=== PATIENT | female | born 1970 | race Caucasian/White ===

== ENCOUNTER 2024-10-24 02:48 | Emergency (ER) | payer MEDICAID, OTHER ==
[~2024-10-24] VITALS: Ht 172.7 cm; Wt 60.4 kg
[2024-10-24] MEDS: ALBUTEROL SULF 2.5 MG/0.5ML(0.5%) NEB SOLN NEB ONE (03:43)
[2024-10-24] MEDS: IPRATROPIUM BROM 0.5 MG/2.5ML INH SOL NEB ONE (03:43)
[2024-10-24 03:49] LABS: Base Excess 0.2 mmol/L (-2.0-3.0)
[2024-10-24 03:50] LABS: Basophils # (auto) 0.1 10 ^3/uL (0-0.2); Basophils % (auto) 0.3 % (0.0-2.0); Eosinophils # (auto) 0 10 ^3/uL (0-0.8); Hematocrit 41.3 % (36.0-46.0); Hemoglobin 13.7 g/dL (12.2-16.2); Lymphocytes # (auto) 0.5 10 ^3/uL (0.4-5.4); Lymphocytes % (auto) 2.6 % (10.0-50.0); Mean Corpuscular Hemoglobin 28.7 pg (28.0-32.0); Mean Corpuscular Hgb Conc. 33.2 g/dL (32.0-36.0); Mean Corpuscular Volume 86.3 fL (80.0-100.0); Monocytes # (auto) 0.7 10 ^3/uL (0-1.3); Monocytes % (auto) 3.6 % (0.0-12.0); Neutrophils % (auto) 93.5 % (37.0-80.0); Platelet Count (auto) 251 10^3/uL (140-450); Red Blood Cells 4.78 10^6/uL (4.0-5.20); Red Cell Distribution Width 14.9 % (11.8-14.3); White Blood Cell 20.3 10^3/uL (4.4-10.8)
[2024-10-24 04:07] LABS: Chloride 103 mmol/L (98-107); Potassium 4.2 mmol/L (3.5-5.1)
[2024-10-24 04:08] LABS: Anion Gap 6 (5-15); Calcium 9.6 mg/dL (8.7-10.4); Carbon Dioxide 26 mmol/L (20-31)
[2024-10-24 04:13] LABS: BUN/Creatinine Ratio 16.9 (10.0-20.0); Blood Urea Nitrogen 11 mg/dL (9-23)
[2024-10-24] MEDS: ASPirin 81 mg TAB PO ONE (04:21)
[2024-10-24 04:37] LABS: Glucose 130 mg/dL (74-106); Sodium 135 mmol/L (136-145)
--- NOTE | 2024-10-24 04:45 | ED.PDOC ---
History of Present Illness HPI Comments 54 y/o F presents with spouse for c/o shortness of breath, chest pain, productive cough, fever, chills, nasal discharge, lightheadedness, weakness, dizziness, and weakness for 2x days, today. Patient is a poor historian and endorses on unprovoked onset of symptoms coinciding recent skin infection to both her nares that have been progressively worsening since. She comments on being on a Clindamycin and mupirocin medication regiment after, initially, being seen and evaluated for skin infection at her local urgent care facility to no relief or improvement. Patient comments on pain worsening with inspirations/expirations and, [place] inhaling "[place] dust" since moving here. She denies having any nausea, vomiting, urinary symptoms, hemoptysis, or other associated symptoms or modifiers at this time. Chief Complaint: Shortness of Breath Time Seen by MD: 02:50 Primary Care Provider: DR BENNETT Reviewed Notes: Nurses Notes, Medications, Allergies Information Source: Patient Mode of Arrival: Ambulatory Severity: Moderate Timing: Days Duration: Since onset Prehospital treatment: None Review of Systems: REVIEW OF SYSTEMS: Fever, chills, no fatigue HEENT: Nasal discharge, no sore throat, no earache, no congestion, no neck pain. Cardiac: Chest pain, lightheadedness, dizzy spells. No palpitations. Lungs: Shortness of breath, cough GI: No nausea, no vomiting, no diarrhea, no constipation, no abdominal pain : No dysuria, frequency, or urgency. No hematuria. Musculoskeletal: No joint pain , no joint swelling, no extremity edema. Skin: No rash, no itching. Neuro: Dizziness, weakness, No headache Vital Signs Vital Signs Date Time Temp Pulse Resp B/P (MAP) Pulse Ox O2 Delivery O2 Flow Rate FiO2 10/24/24 03:44 20 94 Nasal Cannula* 2 28 10/24/24 02:55 98.5 126 147/59 (88) Physical Exam General: Awake, alert and oriented. No acute distress. Skin: Skin in warm, dry and intact. Appropriate color for ethnicity. HEENT: Bilateral nares are inflamed, external nose is erythematous, eschar to right nostril. The head is normocephalic and atraumatic. Conjunctivae are clear without exudates or hemorrhage. Sclera is non-icteric. EOM are intact. No signs of nystagmus. Eyelids are normal in appearance without swelling or lesions. Oral mucosa is pink and moist Neck: The neck is supple with normal range of motion. No JVD. Cardiac: Heart rate tachycardic and rhythm are normal. No murmurs, gallops, or rubs are auscultated. Respiratory: Wheezing, bilaterally. No signs of respiratory distress. Lung sounds are clear in all lobes bilaterally without rales or rhonchi. Abdominal: Abdomen is soft, non-tender without distention. Bowel sounds are present and normoactive in all four quadrants. Extremities: Upper and lower extremities are atraumatic in appearance without deformity or edema. Neurological: The patient is awake, alert and oriented to person, place, and time with normal speech. Speech is clear. There is no facial asymmetry. Psychiatric: Appropriate mood and affect. Good judgement and insight. No visual or auditory hallucinations. 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 Was a procedure done?: No Differential Dx Considerations may include: URI, contact dermatitis, cellulitis, viral syndrome, musculoskeletal pain, NV, PE, PNA, bronchitis X-Ray, Labs, Meds, VS Vital Signs Date Time Temp Pulse Resp B/P (MAP) Pulse Ox O2 Delivery O2 Flow Rate FiO2 10/24/24 03:44 20 94 Nasal Cannula* 2 28 10/24/24 02:55 98.5 126 20 147/59 (88) 89 10/24/24 02:55 20 89 Room Air 0 Lab Test 10/24/24 03:39 Range/Units White Blood Count 20.3 H 4.4-10.8 10^3/uL Red Blood Count 4.78 4.0-5.20 10^6/uL Hemoglobin 13.7 12.2-16.2 g/dL Hematocrit 41.3 36.0-46.0 % Mean Corpuscular Volume 86.3 80.0-100.0 fL Mean Corpuscular Hemoglobin 28.7 28.0-32.0 pg Mean Corpuscular Hemoglobin Concent 33.2 32.0-36.0 g/dL Red Cell Distribution Width 14.9 H 11.8-14.3 % Platelet Count 251 140-450 10^3/uL Mean Platelet Volume 8.7 6.9-10.8 fL Neutrophils (%) (Auto) 93.5 H 37.0-80.0 % Lymphocytes (%) (Auto) 2.6 L 10.0-50.0 % Monocytes (%) (Auto) 3.6 0.0-12.0 % Eosinophils (%) (Auto) 0.0 0.0-7.0 % Basophils (%) (Auto) 0.3 0.0-2.0 % Neutrophils # (Auto) 19.0 H 1.6-8.6 10 ^3/uL Lymphocytes # (Auto) 0.5 0.4-5.4 10 ^3/uL Monocytes # (Auto) 0.7 0-1.3 10 ^3/uL Eosinophils # (Auto) 0 0-0.8 10 ^3/uL Basophils # (Auto) 0.1 0-0.2 10 ^3/uL Nucleated Red Blood Cells 0.0 % D-Dimer, Quantitative 1.18 H 0.0-0.49 mg/L FEU Blood Gas Specimen Type Arterial Blood Gas Sample Site Right radial Blood Gas Patient Temperature 37.0 Arterial Blood Date Drawn [id number] Arterial Blood pH 7.431 7.350-7.450 Arterial Blood Partial Pressure CO2 37.3 32.0-45.0 mmHg Arterial Blood Partial Pressure O2 68.8 L 83.0-108.0 mmHg Arterial Blood HCO3 24.3 21.0-28.0 mmol/L Arterial Blood Oxygen Saturation 93.9 L 94.0-98.0 % Arterial Blood Base Excess 0.2 -2.0-3.0 mmol/L Arterial Blood Oxyhemoglobin 92.0 L 94.0-98.0 % Arterial Blood Carboxyhemoglobin 1.8 H 0.5-1.5 % Arterial Blood Methemoglobin 0.2 0.0-1.5 % Harjit Test Modified Blood Gas Total Hemoglobin 13.50 12.0-16.0 g/dL Blood Gas Liter Flow 2.00 Blood Gas Modality Nasal cannula FiO2 % 28.0 Sodium Level 135 L 136-145 mmol/L Potassium Level 4.2 3.5-5.1 mmol/L Chloride Level 103 98-107 mmol/L Carbon Dioxide Level 26 20-31 mmol/L Anion Gap 6 5-15 Blood Urea Nitrogen 11 9-23 mg/dL Creatinine 0.65 0.550-1.02 mg/dL Glomerular Filtration Rate Calc 103 >90 mL/min BUN/Creatinine Ratio 16.9 10.0-20.0 Serum Glucose 130 H 74-106 mg/dL Calcium Level 9.6 8.7-10.4 mg/dL Current Medications Medications (Trade) Dose Ordered Sig/Lucille Route Start Time Stop Time Status Last Admin Albuterol (Ventolin Medneb) 2.5 mg ONCE ONCE NEB 10/24/24 03:30 10/24/24 03:31 DC 10/24/24 03:43 Ipratropium [place] (Atrovent Medneb) 0.5 mg ONCE ONCE NEB 10/24/24 03:30 10/24/24 03:31 DC 10/24/24 03:43 Aspirin 324 mg ONCE ONCE PO 10/24/24 03:30 10/24/24 03:31 DC 10/24/24 04:21 Dexamethasone Sodium Phosphate (Decadron Injection) 10 mg ONCE ONCE IV 10/24/24 05:15 10/24/24 05:16 10/24/24 05:09 Time of 1ST Reevaluation: 03:20 Reevaluation 1ST: Unchanged Patient Education/Counseling: Diagnosis, Treatment Family Education/Counseling: Diagnosis, Treatment Departure 1 Departure Time of Disposition: 05:13 Impression: Primary Impression: Hypoxia Additional Impressions: Asthma exacerbation Cellulitis of nose Disposition: ADMITTED INPATIENT Condition: Stable Comments 54-year-old female who presented to the emergency department with acute onset of chest pain and shortness of breath. She states the shortness of breath woke her from her sleep. She was found to be 88% on room air in triage. ABG shows PO2 63 on 2 L oxygen. Patient has a history of asthma with wheezing on exam. Steroid and DuoNeb was administered. D-dimer is positive. CT angiogram of the chest pending. Discussed with patient need for admission for further treatment especially in the light of hypoxia. She agrees to admission. Critical Care Note Critical Care Time?: No Stability Stability form required: No Heart Score Heart Score: Heart Score Response (Comments) Value History N/A 0 EKG N/A 0 Age N/A 0 Risk Factors N/A 0 Troponin N/A 0 Total 0 I personally scribed for MERI ANGELES MD ([email or web address]) on 10/24/24 at 04:45. Electronically submitted by Arnold Cortez ([email or web address]). MERI ANGELES MD Oct 24, 2024 04:45
[2024-10-24] MEDS: DexAMETHasone INJECTION 10 MG in D5W 5% 50 ML IV ONE (05:05)
[2024-10-24] MEDS: DexAMETHasone SOD PHOS 10MG/1ML VIAL INJ IV ONE (05:09)
[2024-10-24] MEDS: IOHEXOL 350 MG/ML 100ML IJ ONE (05:57)
[2024-10-24] MEDS: diphenhdrAMINE HCL 50 MG/1 ML VL IV ONE (06:08)
[2024-10-24] MEDS: methylPREDNISolone SOD SUCC 125 MG/2 ML VL IV ONE (06:08)
[2024-10-24] MEDS: AZITHROMYCIN 500MG/ 250ML 250 ML IV ONE (06:45)
[2024-10-24 07:30] VITALS: BP 92/58; PULSE 118; RESP 18; TEMP 98; O2SAT 94
[2024-10-24 07:35] LABS: COVID19 ANTIGEN SOFIA FIA NEGATIVE (NEGATIVE)
[2024-10-24 07:36] LABS: Rapid Influenza A Negative (Negative); Rapid Influenza B Negative (Negative)
[2024-10-24 07:46] LABS: Urine Bacteria FEW /hpf (None Seen); Urine Blood TRACE /uL (Negative); Urine Clarity Clear (Clear); Urine Protein, UAD Negative (Negative); Urine Specific Gravity 1.002 (1.001-1.035); Urine Squamous Epithelial Cell FEW /hpf (<5); Urine Urobilinogen Normal (Negative); Urine WBC 1 /HPF (0-5); Urine pH 5.5 (5.0-9.0)
[2024-10-24 07:51] LABS: Urine Color Light-Yellow (Yellow)
[2024-10-24 08:00] LABS: Cannabinoid Screen, Urine Pos (NEGATIVE); Opiate Scree,Urine Neg (NEGATIVE)
[2024-10-24 08:05] LABS: Amphetamine Screen, Urine Pos (NEGATIVE); Barbiturate Scree,Urine Neg (NEGATIVE); Benzodiazephine Screen, Urine Neg (NEGATIVE); Cocaine Screen, Urine Neg (NEGATIVE); Phencyclidine Screen, Urine Neg (NEGATIVE)
--- NOTE | 2024-10-24 10:04 | DVH ---
CHEST RADIOGRAPH Indication: CP Technique: Single frontal view of the chest was obtained Comparison: None FINDINGS: Lines and Tubes: None Lungs: Bilateral interstitial opacities. There is a focal nodular opacity in the right upper lung zone measuring 1.2 cm. Pleura: No effusion. No pneumothorax. Cardiomediastinal contours: Unremarkable Bones: No acute osseous abnormality. IMPRESSION: 1. Pulmonary venous congestion. Possible 1.2 cm nodule in the right upper lung zone. Noncontrast chest CT is suggested further evaluation. [place] DANIELS
== END 2024-10-24 07:34 | disposition left against medical advice (07) ==
LOC: ER 02:48
DX: J45.901 Unspecified asthma with (acute) exacerbation (principal); R09.02 Hypoxemia; J34.0 Abscess, furuncle and carbuncle of nose; R53.1 Weakness; R42 Dizziness and giddiness; R50.9 Fever, unspecified; R05.9 Cough, unspecified; Z20.822 Contact with and (suspected) exposure to COVID-19
CPT/HCPCS: 36415; 36600; 71045; 80048; 80307; 81001; 82805; 84484; 85025; 85379; 87426; 87804; 94640; 96365; 96375; 99284; J0456; J1100; J1200; J2919; J7060; Q9967

== ENCOUNTER 2024-10-25 06:48 | Inpatient (IN) | payer MEDICAID, OTHER ==
[~2024-10-25] VITALS: Ht 175.3 cm; Wt 90.7 kg
[2024-10-25] VITALS (45 sets, daily range): BP systolic 52–165; BP diastolic 11–97; PULSE 106–207; RESP 16–38; TEMP 97.5–101.5; O2SAT 43–100
--- NOTE | 2024-10-25 06:56 | ED.PDOC ---
SOB-HPI HPI Comments 57 year old female ASHUTOSH presents to the ED with chief complaint of SOB. EMS reports patient has been experiencing SOB with associated wheezing for the past 3 days, worsening over time. EMS relays patient was seen in a hospital recently with sinus infection, but did not receive a prescription. EMS states patient was provided CPAP with DuoNeb treatment and saw immediate improvement in spO2 and breathing. Patient noted to have history of COPD and CHF. Patient denies any chest pain, dizziness, headache, cough, congestion, fever, chills or N/V. 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: Denies all MOLECULAR TECHNOLOGIST Hx Family History Family History: Reviewed,noncontributory to illness Social History Smoker: Non-Smoker Alcohol: Denies ETOH Use Drugs: Denies Drug Use Lives In: Home Constitutional: denies: chills, diaphoresis, fatigue, fever, malaise, sweats, weakness, others EENTM: denies: blurred vision, double vision, ear bleeding, ear discharge, ear drainage, ear pain, ear ringing, eye pain, eye redness, hearing loss, mouth pain, mouth swelling, nasal discharge, nose bleeding, nose congestion, nose pain, photophobia, tearing, throat pain, throat swelling, voice changes, others Respiratory: reports: shortness of breath, wheezing; denies: cough, hemoptysis, orthopnea, SOB at rest, SOB with excertion, stridor, others Cardiovascular: denies: chest pain, dizzy spells, diaphoresis, Dyspnea on exertion, edema, irregular heart beat, left arm pain, lightheadedness, palpitations, PND, syncope, others Gastrointestinal: denies: abdomen distended, abdominal pain, blood streaked bowels, constipated, diarrhea, dysphagia, difficulty swallowing, hematemesis, melena, nausea, poor appetite, poor fluid intake, rectal bleeding, rectal pain, vomiting, others Genitourinary: denies: abnormal vagina bleeding, burning, dyspareunia, dysuria, flank pain, frequency, hematuria, incontinence, pain, , vagina discharge, urgency, others Neurological: denies: dizziness, fainting, headache, left sided numbness, left sided weakness, numbness, paresthesia, pre-existing deficit, right sided numbness, right sided weakness, seizure, speech problems, tingling, tremors, weakness, others Musculoskeletal: denies: back pain, gout, joint pain, joint swelling, muscle pain, muscle stiffness, neck pain, others Integumetry: denies: bruises, change in color, change in hair/nails, dryness, laceration, lesions, lumps, rash, wounds, others Allergic/Immunocompromised: denies: Difficulty Healing, Frequent Infections, Hives, Itching, others Hematologic/Lymphatic: denies: anemia, blood clots, easy bleeding, easy bruising, swollen glands, others Endocrine: denies: excessive hunger, excessive sweating, excessive thirst, excessive urination, flushing, intolerance to cold, intolerance to heat, une xplained weight gain, unexplained weight loss, others Psychiatric: denies: anxiety, bipolar disorder, depression, hopeless, panic disorder, schizophrenia, sleepless, suicidal, others All Other Systems: Reviewed and Negative Physical Exam General Appearance: No Apparent Distress, Normal HEENT: Normal ENT Inspection, PERRL/EOMI Neck: Full Range of Motion, Non-Tender, Normal, Normal Inspection Respiratory: Chest Non-Tender, Lungs Clear, No Accessory Muscle Use, Other (Tachypneic, Course breath sounds bilaterally, expiratory wheezing) Cardiovascular: No Edema, No JVD, No Murmur, No Gallop, Normal Peripheral Pulses, Tachycardia Breast Exam: Deferred Gastrointestinal: No Organomegaly, Non Tender, No Pulsatile Mass, Normal Bowel Sounds, Soft Genitalia: Deferred Pelvic: Deferred Rectal: Deferred Extremities: No calf tenderness, Normal capillary refill, Normal inspection, Normal range of motion, Non-tender, No pedal edema Musculoskeletal : Apperance: Normal Neurologic: Alert, bakery chef II-XII nml as Tested, No Motor Deficits, Normal Affect, Normal Mood, No Sensory Deficits Cerebellar Function: Normal Reflexes: Normal Skin: Dry, Normal Color, Warm Lymphatic: No Adenopathy Was a procedure done? 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 Indication: Hypotension, CVP monitoring, Volume resuscitation, Suspected infection Room prepared for procedure: Yes Windows Application Packager performed hand hygien: Yes Maximal sterile barrier precau: Mask/Eye shield, Sterile gown, Cap, Sterlie gloves, Large sterlie drape Skin Preparation: Chlorhexidine gluconate Skin preparation completely dr: Yes Insertion site: Right, Femoral Central line catheter type: [id number] dialysis Number of lumens: 3 Post Assessment: Chest X-Ray Informed consent obtained: Yes Risks/benefits/alt described: Yes Intubation Indication: Respiratory Insufficiency, Airway Protection Prep: Preoxygenation Pretreated with: Sedation Medicated with: Other (100mg of Rocuronium, 20mg of Etomidate) Intubation Approach: Orotracheal Intubation size: cm (8) Informed consent obtained: Yes Risks/benefits/alt described: Yes Differential Dx Differential Diagnosis: CHF, COPD, Hyponatremia, Pneumonia, Respiratory Distress, URI X-Ray, Labs, Meds, VS Vital Signs Date Time Temp Pulse Resp B/P (MAP) Pulse Ox O2 Delivery O2 Flow Rate FiO2 10/25/24 09:04 109/67 10/25/24 09:04 109/67 10/25/24 08:58 109/67 10/25/24 08:40 159 45 109/67 (81) 95 10/25/24 08:23 148 16 107/74 (85) 98 50 10/25/24 08:00 143 10/25/24 07:03 145 166/113 Facial BiPAP Mask 100 10/25/24 06:53 97.9 110 22 165/90 (115) 96 Lab Test 10/25/24 08:15 10/25/24 08:02 10/25/24 07:00 Range/Units Troponin I High Sensitivity Pending 3 L </=34 ng/L Blood Gas Specimen Type Arterial Blood Gas Sample Site Right brachial Blood Gas Patient Temperature 37.0 Arterial Blood Date Drawn [id number] Arterial Blood pH 7.275 L 7.350-7.450 Arterial Blood Partial Pressure CO2 43.2 32.0-45.0 mmHg Arterial Blood Partial Pressure O2 361.9 *H 83.0-108.0 mmHg Arterial Blood HCO3 19.6 L 21.0-28.0 mmol/L Arterial Blood Oxygen Saturation 99.7 H 94.0-98.0 % Arterial Blood Base Excess -7.0 L -2.0-3.0 mmol/L Arterial Blood Oxyhemoglobin 97.7 94.0-98.0 % Arterial Blood Carboxyhemoglobin 1.6 H 0.5-1.5 % Arterial Blood Methemoglobin 0.4 0.0-1.5 % Harjit Test N/a Blood Gas Total Hemoglobin 14.40 12.0-16.0 g/dL Blood Gas Set Respiration Rate 12.0 Blood Gas Modality Mask - bipap Blood Gas Spontaneous Rate 33 FiO2 % 100.0 Blood Gas Spontaneous Tidal Volume 789 Blood Gas EPAP 5 Blood Gas IPAP 12 Blood Gas Comments I-time 0.9 sec. Blood Gas Critical Value Read Back Yes Blood Gas Notified Whom Blood Gas Notified Time [id number] Blood Gas Notified By Barbara montoya rt White Blood Count 3.6 L 4.4-10.8 10^3/uL Red Blood Count 5.27 H 4.0-5.20 10^6/uL Hemoglobin 14.9 12.2-16.2 g/dL Hematocrit 45.9 36.0-46.0 % Mean Corpuscular Volume 87.0 80.0-100.0 fL Mean Corpuscular Hemoglobin 28.2 28.0-32.0 pg Mean Corpuscular Hemoglobin Concent 32.4 32.0-36.0 g/dL Red Cell Distribution Width 15.0 H 11.8-14.3 % Platelet Count 264 140-450 10^3/uL Mean Platelet Volume 9.6 6.9-10.8 fL Neutrophils (%) (Auto) 37.0-80.0 % Lymphocytes (%) (Auto) 10.0-50.0 % Monocytes (%) (Auto) 0.0-12.0 % Basophils (%) (Auto) 0.0-2.0 % Neutrophils # (Auto) 1.6-8.6 10 ^3/uL Lymphocytes # (Auto) 0.4-5.4 10 ^3/uL Monocytes # (Auto) 0-1.3 10 ^3/uL Differential Total Cells Counted Pending Neutrophils % (Manual) Pending Band Neutrophils % (Manual) Pending Lymphocytes % (Manual) Pending Monocytes % (Manual) Pending Eosinophils % (Manual) Pending Basophils % (Manual) Pending Metamyelocytes % (manual) Pending Myelocytes % (Manual) Pending Promyelocytes % (Manual) Pending Blast Cells % (Manual) Pending Reactive Lymphocytes Pending Platelet Estimate Pending Sodium Level 137 136-145 mmol/L Potassium Level 3.4 L 3.5-5.1 mmol/L Chloride Level 102 98-107 mmol/L Carbon Dioxide Level 23 20-31 mmol/L Anion Gap 12 5-15 Blood Urea Nitrogen 19 9-23 mg/dL Creatinine 1.06 H 0.550-1.02 mg/dL Glomerular Filtration Rate Calc 61 >90 mL/min BUN/Creatinine Ratio 17.9 10.0-20.0 Serum Glucose 129 H 74-106 mg/dL Calcium Level 10.1 8.7-10.4 mg/dL B-Type Natriuretic Peptide 47.71 0-100 pg/mL Current Medications Medications (Trade) Dose Ordered Sig/Lucille Route Start Time Stop Time Status Last Admin Albuterol (Ventolin Medneb) 5 mg ONCE ONCE NEB 10/25/24 07:00 10/25/24 07:01 DC 10/25/24 07:20 Ipratropium [place] (Atrovent Medneb) 0.5 mg ONCE ONCE NEB 10/25/24 07:00 10/25/24 07:01 DC 10/25/24 07:20 Methylprednisolone Sodium Succinate (Solu Medrol) 62.5 mg ONCE ONCE IV 10/25/24 07:00 10/25/24 07:01 DC 10/25/24 07:24 Azithromycin 250 ml @ 125 mls/hr ONCE ONCE IV 10/25/24 07:00 10/25/24 08:59 DC 10/25/24 07:24 Ketamine HCl (Ketalar) 50 mg ONCE ONCE IV 10/25/24 07:00 10/25/24 07:01 DC 10/25/24 07:24 Midazolam HCl 50 ml @ 1 mls/hr Q24H IV 10/25/24 09:00 10/25/24 09:04 Fentanyl Citrate 250 ml @ 2.5 mls/hr Q24H IV 10/25/24 09:00 10/25/24 09:04 Rocuronium [place] 100 mg ONCE ONCE IV 10/25/24 08:20 10/25/24 08:55 DC 10/25/24 08:58 Etomidate 40 mg ONCE ONCE IV 10/25/24 08:20 10/25/24 08:55 DC 10/25/24 08:58 Sodium Chloride 1,000 ml @ 1,000 mls/hr Q1H ONCE IV 10/25/24 09:00 10/25/24 09:59 10/25/24 08:59 Time of 1ST Reevaluation: 07:51 Reevaluation 1ST: Unchanged Patient Education/Counseling: Diagnosis, Treatment Family Education/Counseling: No Family Present Additional Information I reviewed the following notes from patient's past medical encounters: The following tests were ordered, and results were reviewed by me: I reviewed and agreed with the following test results read by other providers: Additional Information was gathered from interviewing the following independent historians: I discussed treatment and results with medical personnel and: Departure 1 Departure Time of Disposition: 09:28 (Patient presents in septic shock secondary to multifocal pneumonia. We will empirically cover patient with fluids and antibiotics. Patient was emergently intubated and central line placed for respiratory failure. We will admit patient to ICU) Impression: Primary Impression: Acute respiratory failure Qualified Codes: J96.01 - Acute respiratory failure with hypoxia Additional Impressions: Sepsis Qualified Codes: A41.9 - Sepsis, unspecified organism; R65.21 - Severe sepsis with septic shock; J96.01 - Acute respiratory failure with hypoxia Multifocal pneumonia Disposition: ADMITTED INPATIENT Admit to: ICU Condition: Critical Critical Care Note Critical Care Time?: Yes Critical care comment: Acute respiratory failure Authorized and Performed by: Devi Gibbs MD Total critical care time: Approximately 49 minutes Due to a high probability of clinically significant, life threatening deterioration, the patient required my highest level of preparedness to intervene emergently and I personally spent this critical care time directly and personally managing the patient. This critical care time included obtaining a history; examining the patient; pulse oximetry; ordering and review of studies; arranging urgent treatment with development of a management plan; evaluation of patient's response to treatment; frequent reassessment; and, discussions with other providers. This critical care time was performed to assess and manage the high probability of imminent, life-threatening deterioration that could result in multi-organ failure. It was exclusive of separately billable procedures and treating other patients and teaching time. Please see my other sections and the rest of the note for further information on patient assessment and treatment. Stability Stability form required: No Heart Score Heart Score: Heart Score Response (Comments) Value History N/A 0 EKG N/A 0 Age N/A 0 Risk Factors N/A 0 Troponin N/A 0 Total 0 I personally scribed for DEVI GIBBS MD ([email or web address]) on 10/25/24 at 06:56. Electronically submitted by Keanu May ([email or web address]). I personally scribed for DEVI GIBBS MD ([email or web address]) on 10/25/24 at 08:29. Electronically submitted by Keanu May ([email or web address]). I personally scribed for DEVI GIBBS MD ([email or web address]) on 10/25/24 at 08:45. Electronically submitted by Keanu May ([email or web address]). DEVI GIBBS MD Oct 25, 2024 06:56
[2024-10-25] MEDS: IPRATROPIUM BROM 0.5 MG/2.5ML INH SOL NEB ONE (07:20)
[2024-10-25] MEDS: ALBUTEROL SULF 2.5 MG/0.5ML(0.5%) NEB SOLN NEB ONE (07:20)
[2024-10-25] MEDS: KETAMINE 50mg/ML 10ml Vial (500mg/10ml) IV ONE (07:24)
[2024-10-25] MEDS: methylPREDNISolone SOD SUCC 125 MG/2 ML VL IV ONE (07:24)
[2024-10-25] MEDS: AZITHROMYCIN 500MG/ 250ML 250 ML IV ONE (07:24)
--- NOTE | 2024-10-25 07:29 | DVH ---
CHEST RADIOGRAPH Indication: SOB Technique: Single frontal view of the chest was obtained Comparison: None FINDINGS: Lines and Tubes: None Lungs: Bilateral consolidations noted. Pleura: No effusion. No pneumothorax. Cardiomediastinal contours: Unremarkable Bones: No acute osseous abnormality. IMPRESSION: 1. Bilateral consolidations which may reflect pneumonia.
[2024-10-25 07:36] LABS: Chloride 102 mmol/L (98-107); Sodium 137 mmol/L (136-145)
[2024-10-25 07:37] LABS: Anion Gap 12 (5-15); Calcium 10.1 mg/dL (8.7-10.4); Carbon Dioxide 23 mmol/L (20-31)
[2024-10-25 07:42] LABS: BUN/Creatinine Ratio 17.9 (10.0-20.0); Blood Urea Nitrogen 19 mg/dL (9-23)
[2024-10-25 07:46] LABS: Glucose 129 mg/dL (74-106); Potassium 3.4 mmol/L (3.5-5.1)
[2024-10-25 07:49] LABS: Hematocrit 45.9 % (36.0-46.0); Hemoglobin 14.9 g/dL (12.2-16.2); Mean Corpuscular Hemoglobin 28.2 pg (28.0-32.0); Mean Corpuscular Hgb Conc. 32.4 g/dL (32.0-36.0); Platelet Count (auto) 264 10^3/uL (140-450); Red Blood Cells 5.27 10^6/uL (4.0-5.20); White Blood Cell 3.6 10^3/uL (4.4-10.8)
[2024-10-25 07:52] LABS: Basophils % (manual) 0 (0.0-2.0); Blast Cells 0; Eosinophils % (manual) 0 (0-7); Metamyelocytes % 0; Myelocytes % 0; Promyelocytes % 0; Reactive Lymphocytes 0
[2024-10-25] MEDS: MIDAZOLAM DRIP 50 mg/50mL 50 ML IV ONE (08:17)
[2024-10-25] MEDS: ETOMIDATE (2MG/ML) 20ML VIAL IV ONE ×2 (08:17→08:58)
[2024-10-25] MEDS: ROCURONIUM 10MG/ML 10ML VIAL IV ONE ×2 (08:17→08:58)
[2024-10-25] MEDS: SODIUM CHLORIDE 0.9% 1,000 ML IV ONE ×3 (08:59→12:58)
[2024-10-25] MEDS: MIDAZOLAM DRIP 50 mg/50mL 50 ML IV SCH (09:04)
[2024-10-25] MEDS: fentaNYL Drip 2500mCg/250mlNS 250 ML IV SCH (09:04)
--- NOTE | 2024-10-25 09:22 | DVH ---
CHEST RADIOGRAPH Indication: ETT / NG TUBE PLACEMENT CONFIRMATION Technique: Single frontal view of the chest was obtained Comparison: None FINDINGS: Lines and Tubes: Endotracheal tube 6 cm from the nasogastric overlying region stomach Lungs: Multifocal airspace opacities Pleura: No effusion. No pneumothorax. Cardiomediastinal contours: Unremarkable Bones: No acute osseous abnormality. IMPRESSION: Multifocal airspace opacities Lines and tubes as above.
[2024-10-25] MEDS ORDERED: VANCOMYCIN 1GM/250ML KIT 200 ML IV ONE (09:30)
[2024-10-25 09:33] LABS: Band Neutrophils % (manual) 10; Lymphocytes % (manual) 25 (10.0-50.0); Monocytes % (manual) 3 (0-12)
[2024-10-25 09:34] LABS: Platelet Estimate Adequate
[2024-10-25 09:54] LABS: Base Excess -11.5 mmol/L (-2.0-3.0)
[2024-10-25] MEDS ORDERED: DOCUSATE SOD 100 MG CAP PO PRN (10:00)
[2024-10-25] MEDS ORDERED: MORPHINE SULFATE INJ 2 MG/ml SYRG IV PRN (10:00)
[2024-10-25] MEDS ORDERED: ONDANSETRON HCL 4 MG/2 ML VIAL IV PRN (10:00)
[2024-10-25] MEDS ORDERED: NITROGLYCERIN 0.4 MG SL TAB SL PRN (10:00)
[2024-10-25] MEDS ORDERED: VANCOMYCIN PER PHARMACY 0 MG IV SCH ×2 (10:00→11:45)
[2024-10-25 10:05] LABS: Urine Bacteria FEW /hpf (None Seen); Urine Blood 1+ /uL (Negative); Urine Clarity Turbid (Clear); Urine Color Yellow (Yellow); Urine Hyaline Cast MOD /lpf (0 - 2); Urine Mucus FEW (None Seen); Urine Protein, UAD 1+ (Negative); Urine Specific Gravity 1.027 (1.001-1.035); Urine Squamous Epithelial Cell FEW /hpf (<5); Urine Urobilinogen Normal (Negative); Urine WBC 9 /HPF (0-5); Urine pH 5.5 (5.0-9.0)
--- NOTE | 2024-10-25 10:13 | DVHHP2 ---
History of Present Illness Reason for Visit: Shortness of breath History of Present Illness Susan Reid is a 54-year-old female with past medical history of hypertension and CHF, who came in for shortness of breath. On assessment patient was intubated. Per EMS, patient has been experiencing shortness of breath with associated wh eezing for 3 days. EMS gave the patient DuoNeb treatment and CPAP with improvement to her symptoms. While in the ER she was tachycardic and her work of breathing continued to increase. Ther ER physician then made the choice to intubate the patient and place a central line. Patient began declining a couple hours after intubation. Was started on multiple vasopressors. D-dimer elevated, will start anticoagulation. Art line was placed. Cardiovascular: CHF, HTN Past Surgical History: Smoke: 1 pack per day ALCOHOL: none Lives: with Family Domestic Violence: Neg Review of Systems Constitutional: No: Fever, Chills, Sweats, Weakness, Malaise, Other Eyes: No: Pain, Vision change, Conjunctivae inflammation, Eyelid inflammation, Other, Redness ENT: No: Ear pain, Ear discharge, Nose pain, Nose discharge, Nose congestion, Mouth pain, Mouth swelling, Throat pain, Throat swelling, Other Respiratory: Shortness of breath, SOB with excertion; No: Cough, Dry, Wheezing, Hemoptysis, Pleuritic Pain, Sputum, Wheezing, Other Cardiovascular: No: Chest Pain, Palpitations, Orthopnea, Paroxysmal Noc. Dyspnea, Edema, Lt Headedness, Other Gastrointestinal: No: Nausea, Vomiting, Abdominal Pain, Diarrhea, Constipation, Melena, Hematochezia, Other Genitourinary: No Dysuria, No Frequency, No Incontinence, No Hematuria, No Retention, No Other Musculoskeletal: No: other, neck pain, shoulder pain, arm pain, back pain, hand pain, leg pain, foot pain Skin: No: Rash, Lesions, Jaundice, Bruising, Other Neurological: No: Weakness, Numbness, Incoordination, Change in speech, Confusion, Seizures, Other Allergies: Coded Allergies: NO KNOWN ALLERGIES (Unverified , 10/25/24) Medications Current Medications Medications Dose Ordered Sig/Lucille Route Start Time Stop Time Status Last Admin Dose Admin Midazolam HCl 50 ml @ 1 mls/hr Q24H IV 10/25/24 09:00 10/25/24 09:04 1 MLS/HR Fentanyl Citrate 250 ml @ 2.5 mls/hr Q24H IV 10/25/24 09:00 10/25/24 09:04 2.5 MLS/HR Exam Vital Signs Vital Signs Date Time Temp Pulse Resp B/P (MAP) Pulse Ox O2 Delivery O2 Flow Rate FiO2 10/25/24 09:36 96 Mechanical Ventilator+ 40 40 10/25/24 09:04 109/67 10/25/24 08:40 159 45 10/25/24 06:53 97.9 General Appearance: severe distress, Other (Intubated and sedated) HEENT: Atraumatic, PERRLA Respiratory: Other (Rales and diminished breath sounds. Intubated) Cardiovascular: Normal S1, Normal S2, Other (Tachycardia) Abdominal: Normal bowel sounds, Soft Extremities: No clubbing, No cyanosis, No edema, Normal pulses Skin: No rashes (Rash to perineal area) Neuro: Other (sedated) Labs/Xrays Labs Test 10/25/24 09:28 10/25/24 09:25 10/25/24 08:15 10/25/24 08:02 Range/Units Blood Gas Specimen Type Arterial Blood Gas Sample Site Left radial Blood Gas Patient Temperature 37.0 Arterial Blood Date Drawn [id number] Arterial Blood pH 7.117 *L 7.350-7.450 Arterial Blood Partial Pressure CO2 58.1 H 32.0-45.0 mmHg Arterial Blood Partial Pressure O2 102.4 83.0-108.0 mmHg Arterial Blood HCO3 18.3 L 21.0-28.0 mmol/L Arterial Blood Oxygen Saturation 96.0 94.0-98.0 % Arterial Blood Base Excess -11.5 L -2.0-3.0 mmol/L Arterial Blood Oxyhemoglobin 94.6 94.0-98.0 % Arterial Blood Carboxyhemoglobin 1.1 0.5-1.5 % Arterial Blood Methemoglobin 0.4 0.0-1.5 % Harjit Test Modified Blood Gas Total Hemoglobin 14.10 12.0-16.0 g/dL Blood Gas Set Respiration Rate 16.0 Blood Gas Liter Flow 60.00 Blood Gas Modality Vent - ac Blood Gas Spontaneous Rate 16 FiO2 % 50.0 Blood Gas Tidal Volume 500.0 Blood Gas PEEP or CPAP 5.0 Blood Gas Critical Value Read Back Yes Blood Gas Notified Whom Blood Gas Notified Time [id number] Blood Gas Notified By Barbara montoya rt Blood Gas Spontaneous Tidal Volume 789 Blood Gas EPAP 5 Blood Gas IPAP 12 Blood Gas Comments I-time 0.9 sec. Test 10/25/24 07:00 Range/Units White Blood Count 3.6 L 4.4-10.8 10^3/uL Red Blood Count 5.27 H 4.0-5.20 10^6/uL Hemoglobin 14.9 12.2-16.2 g/dL Hematocrit 45.9 36.0-46.0 % Mean Corpuscular Volume 87.0 80.0-100.0 fL Mean Corpuscular Hemoglobin 28.2 28.0-32.0 pg Mean Corpuscular Hemoglobin Concent 32.4 32.0-36.0 g/dL Red Cell Distribution Width 15.0 H 11.8-14.3 % Platelet Count 264 140-450 10^3/uL Mean Platelet Volume 9.6 6.9-10.8 fL Neutrophils (%) (Auto) 37.0-80.0 % Lymphocytes (%) (Auto) 10.0-50.0 % Monocytes (%) (Auto) 0.0-12.0 % Basophils (%) (Auto) 0.0-2.0 % Neutrophils # (Auto) 1.6-8.6 10 ^3/uL Lymphocytes # (Auto) 0.4-5.4 10 ^3/uL Monocytes # (Auto) 0-1.3 10 ^3/uL Differential Total Cells Counted 100.0 100 Neutrophils % (Manual) 62 37.0-80.0 Band Neutrophils % (Manual) 10 Lymphocytes % (Manual) 25 10.0-50.0 Monocytes % (Manual) 3 0-12 Eosinophils % (Manual) 0 0-7 Basophils % (Manual) 0 0.0-2.0 Metamyelocytes % (manual) 0 Myelocytes % (Manual) 0 Promyelocytes % (Manual) 0 Blast Cells % (Manual) 0 Reactive Lymphocytes 0 Platelet Estimate Adequate Sodium Level 137 136-145 mmol/L Potassium Level 3.4 L 3.5-5.1 mmol/L Chloride Level 102 98-107 mmol/L Carbon Dioxide Level 23 20-31 mmol/L Anion Gap 12 5-15 Blood Urea Nitrogen 19 9-23 mg/dL Creatinine 1.06 H 0.550-1.02 mg/dL Glomerular Filtration Rate Calc 61 >90 mL/min BUN/Creatinine Ratio 17.9 10.0-20.0 Serum Glucose 129 H 74-106 mg/dL Calcium Level 10.1 8.7-10.4 mg/dL B-Type Natriuretic Peptide 47.71 0-100 pg/mL CHEST RADIOGRAPH FINDINGS: Lines and Tubes: Endotracheal tube 6 cm from the nasogastric overlying region stomach Lungs: Multifocal airspace opacities Pleura: No effusion. No pneumothorax. Cardiomediastinal contours: Unremarkable Bones: No acute osseous abnormality. IMPRESSION: Multifocal airspace opacities Lines and tubes as above. Assessment/Plan Assessment/Plan Assessment: Multifocal pneumonia, Acute respiratory failure, Respiratory acidosis, UTI, Sepsis, COPD, CHF, Plan: Admit to ICU, IV antibiotics, IV hydration, IV sedation, ECHO, D-dimer, Anticoagulation, NPO, Mechanical ventilation, ABG in am, Chest X-ray in am, Sodium bicarb drip, Blood cultured, Urine culture, Sputum culture, Pulmonary consult, Manage/Monitor electrolytes, Plan discussed with: Patient My Orders Orders - HERNÁN TOBIN F[employer]IT[employer]RANGER Procedure Category Date Status Time Admit ADMIT 10/25/24 Transmitted 09:57 Code Status CODE 10/25/24 Transmitted 09:57 0.9% Ns 1000 Ml PHA 10/25/24 Transmitted 10:00 Ondansetron Hcl PHA 10/25/24 Transmitted (Zofran) 10:00 Docusate Sodium PHA 10/25/24 Transmitted Capsule (Colace 10:00 Enoxaparin Sodium PHA 10/25/24 Transmitted (Lovenox) 10:00 Complete Blood Count LAB 10/26/24 Verified 04:00 Comprehensive LAB 10/26/24 Verified Metabolic Panel 04:00 Npo (Nothing By DIET 10/25/24 Transmitted Mouth) Diet Lunch Condition: Critical NENO 10/25/24 Transmitted 09:57 Acetaminophen Tablet PHA 10/25/24 Transmitted (Tylenol Tablet) 10:00 Nitroglycerin PHA 10/25/24 Transmitted Sublingual (Ntrostat 10:00 Morphine Sulfate PHA 10/25/24 Transmitted Injection 10:00 Stat Ekg For Chest NENO 10/25/24 Transmitted Pain 09:57 Notify Of Changes NENO 10/25/24 Transmitted From Base 09:57 Hospice Art Therapist For NENO 10/25/24 Transmitted 24 Hours 09:57 Emergency Dysrhythmia [facility] 10/25/24 Transmitted Protocol 09:57 Rhythm Strips Once [facility] 10/25/24 Transmitted Every Shift 09:57 Oxygen By Nasal RT 10/25/24 Transmitted Cannula 09:57 Vancomycin Per PHA 10/25/24 Transmitted Pharmacy 10:00 Date of Service: Oct 25, 2024 Billing Provider: HERNÁN TOBIN Common Visit Codes: [id number] INP/OBS CARE (HIGH) HERNÁN TOBIN Oct 25, 2024 10:13
[2024-10-25] MEDS: CEFEPIME 2GM/50ML NS 50 ML IV ONE (10:21)
[2024-10-25 10:24] LABS: Rapid Influenza A Negative (Negative); Rapid Influenza B Negative (Negative)
[2024-10-25] MEDS: VANCOMYCIN 1.75GM/350ML 350 ML IV ONE (10:37)
[2024-10-25] MEDS: SODIUM CHLORIDE 0.9% 1,000 ML IV SCH (10:38)
[2024-10-25] MEDS: ENOXAPARIN SOD 40 MG/0.4 ML SYRINGE SC SCH (10:40)
[2024-10-25] MEDS: SODIUM BICARB 50mEq/50ml Vial 100 ML in D5W 5% 1,000 ML IV SCH ×2 (11:45→20:30)
[2024-10-25] MEDS: SODIUM BICARB 8.4% 50Meq/50ml SYR Vial IV ONE ×5 (11:56→23:23)
[2024-10-25] MEDS: NOREPINEPHRINE 8 MG/250ML KIT 250 ML IV SCH (13:03)
[2024-10-25 13:51] LABS: Base Excess -11.8 mmol/L (-2.0-3.0)
[2024-10-25] MEDS: IPRATROPIUM BROM 0.5 MG/2.5ML INH SOL NEB SCH (14:00)
[2024-10-25] MEDS: ALBUTEROL SULF 2.5 MG/0.5ML(0.5%) NEB SOLN NEB SCH (14:00)
[2024-10-25] MEDS: ALBUTEROL SULF 2.5 MG/0.5ML(0.5%) NEB SOLN ONE (14:09)
[2024-10-25] MEDS: IPRATROPIUM BROM 0.5 MG/2.5ML INH SOL ONE (14:09)
[2024-10-25] MEDS: CEFEPIME 1GM/ 50ML 50 ML IV SCH (15:14)
[2024-10-25] MEDS: PHENYLEPHRINE IV 250 ML IV SCH (15:15)
[2024-10-25] MEDS: ACETAMINOPHEN 325 MG TAB PO PRN (15:22)
[2024-10-25] MEDS: VASOPRESSIN 20 UNITS in SODIUM CHL 0.9% 99 ML IV SCH (15:36)
[2024-10-25] MEDS: VASOPRESSIN 20 UNIT/ML ONE (16:00)
[2024-10-25 16:03] LABS: Alanine Aminotransferase 16 U/L (7-40); Alkaline Phosphatase 81 U/L (46-116); Anion Gap 10 (5-15); Aspartate Aminotransferase 24 U/L (13-40); BUN/Creatinine Ratio 18.9 (10.0-20.0); Bilirubin, Total 0.5 mg/dL (0.2-1.0); Blood Urea Nitrogen 18 mg/dL (9-23); Carbon Dioxide 20 mmol/L (20-31); Potassium 4.3 mmol/L (3.5-5.1); Sodium 140 mmol/L (136-145)
[2024-10-25 16:04] LABS: Calcium 8.2 mg/dL (8.7-10.4); Chloride 110 mmol/L (98-107); Glucose 132 mg/dL (74-106)
[2024-10-25 16:05] LABS: Albumin 3.1 g/dL (3.2-4.8)
[2024-10-25] MEDS: POTASSIUM CHL 20MEQ/100ML 100 ML IV SCH (16:15)
[2024-10-25 16:30] LABS: Base Excess -8.9 mmol/L (-2.0-3.0)
[2024-10-25] MEDS ORDERED: MAGNESIUM SULFATE 1GM/100ML 100 ML IV SCH (17:00)
--- NOTE | 2024-10-25 17:33 | DVH ---
Bilateral lower extremity venous duplex Clinical History: R/O DVT, elevated D-dimer Comparison: None Technique: Duplex Doppler evaluation of the deep venous systems of both lower extremities from the co mmon femoral veins to the popliteal veins including color Doppler and spectral/pulsed waveform analys is was performed. Findings: RIGHT SIDE: The common femoral vein is not visualized. The greater saphenous junction is nonvisualized. The proximal femoral vein is not visualized. Mid and distal segments are compressible with respiropha sic flow. The popliteal vein demonstrates appropriate compressibility and waveform variability . There is color flow at the tibioperoneal trunk and in the posterior tibial vein. LEFT SIDE: The common femoral vein demonstrates appropriate compressibility and waveform variability . There is compressibility/patency of the great saphenous vein at the proximal thigh . The femoral vein demonstrates appropriate compressibility and waveform variability . The popliteal vein demonstrates appropriate compressibility and waveform variability . There is color flow at the tibioperoneal trunk and in the posterior tibial vein. Impression: 1. The right common femoral, proximal femoral greater saphenous junction could not be evaluated due t o overlying bandage. Mid to distal femoral, popliteal and calf veins are patent with no evidence of D VT. 2. No evidence of DVT in the left lower extremity.
[2024-10-25] MEDS ORDERED: IPRATROPIUM BROM 0.5 MG/2.5ML INH SOL NEB SCH (18:00)
[2024-10-25] MEDS ORDERED: ALBUTEROL SULF 2.5 MG/0.5ML(0.5%) NEB SOLN NEB SCH (18:00)
[2024-10-25 19:05] LABS: Base Excess -9.9 mmol/L (-2.0-3.0)
--- NOTE | 2024-10-25 20:25 | DVHINCON2 ---
Date of service: Oct 25, 2024 Referring Physician DEVANG Reyes Reason for Consultation Acute hypoxic respiratory failure, mechanical ventilator management History of Present Illness 54-year-old woman history of hypertension, CHF who presented with shortness of breath. She was having shortness of breath and wheezing for the last three days. She recently left against medical advice. She was emergently intubated by ED physician and placed on mechanical ventilator. Pulmonary consultation is called due to acute hypoxic respiratory failure on mechanical ventilator management. Review of systems: Unable to obtain due to patient's critical condition. Past medical history: CHF, hypertension, methamphetamine abuse Past surgical history: Medications: Reviewed Allergies: Naprosyn, penicillins Family history: No family history of premature CAD. No family history of lung disease Social history: Smoker, one pack per day. No alcohol use. Methamphetamine use. Lives with family. Allergies: Coded Allergies: Mupirocin (Unverified Allergy, Unknown, 10/25/24) Penicillins (Unverified Allergy, Unknown, 10/25/24) Current Medications Current Medications Medications (Trade) Dose Ordered Sig/Lucille Route PRN Reason Start Time Stop Time Status Last Admin Midazolam HCl 50 ml @ 1 mls/hr Q24H IV 10/25/24 09:00 10/25/24 15:36 Fentanyl Citrate 250 ml @ 2.5 mls/hr Q24H IV 10/25/24 09:00 10/25/24 09:04 Sodium Chloride 1,000 ml @ 100 mls/hr Q10H IV 10/25/24 10:00 10/25/24 11:43 DC 10/25/24 10:38 Ondansetron HCl (Zofran) 4 mg Q4HP PRN IV NAUSEA / VOMITING 10/25/24 10:00 Docusate Sodium (Colace Capsule) 100 mg BIDPRN PRN PO FOR CONSTIPATION 10/25/24 10:00 Enoxaparin Sodium (Lovenox) 40 mg DAILY SC 10/25/24 10:00 10/25/24 10:40 Acetaminophen (Tylenol Tablet) 650 mg Q6HP PRN PO PAIN SCALE 1-3 OR TEMP>100.4 10/25/24 10:00 10/25/24 15:22 Nitroglycerin (Ntrostat Sublingual) 0.4 mg Q5MINP PRN SL FOR CHEST PAIN 10/25/24 10:00 Morphine Sulfate 2 mg Q30M PRN IV FOR CHEST PAIN 10/25/24 10:00 Vancomycin HCl 0 ml @ 0 mls/hr UD IV 10/25/24 10:00 Vancomycin HCl 0 ml @ 0 mls/hr UD IV 10/25/24 11:45 10/25/24 14:38 DC Cefepime HCl 50 ml @ 12.5 mls/hr Q8HR IV 10/25/24 15:00 10/25/24 15:14 Sodium Bicarbonate 100 ml/Dextrose 1,100 ml @ 100 mls/hr Q11H IV 10/25/24 11:45 10/25/24 17:40 DC 10/25/24 11:45 Norepinephrine Bitartrate 250 ml @ 3.75 mls/hr Q24H IV 10/25/24 12:45 10/25/24 13:03 Methylprednisolone Sodium Succinate (Solu Medrol) 40 mg BID IV 10/25/24 22:00 Cancel Ipratropium [place] (Atrovent Medneb) 0.5 mg Q6HWA [facility] 10/25/24 18:00 10/25/24 14:00 DC Albuterol (Ventolin Medneb) 2.5 mg Q6HWA NEB 10/25/24 18:00 10/25/24 14:00 DC Albuterol (Ventolin Medneb) 2.5 mg Q4HR NEB 10/25/24 14:00 10/25/24 20:02 Ipratropium [place] (Atrovent Medneb) 0.5 mg Q4HR NEB 10/25/24 14:00 10/25/24 20:01 Vancomycin HCl 250 ml @ 200 mls/hr Q16H IV 10/26/24 02:00 Vasopressin 20 units/Sodium Chloride 100 ml @ 9 mls/hr Q11H7M IV 10/25/24 15:15 10/25/24 15:36 Phenylephrine HCl 250 ml @ 30 mls/hr Q8H20M IV 10/25/24 15:15 10/25/24 18:16 Potassium Chloride 100 ml @ 50 mls/hr Q2H IV 10/25/24 16:15 10/25/24 19:41 DC Magnesium Sulfate/ Dextrose 100 ml @ 100 mls/hr Q1HR IV 10/25/24 17:00 10/25/24 18:59 UNV Enoxaparin Sodium (Lovenox) 90 mg Q12HR SC 10/25/24 22:00 UNV Sodium Bicarbonate 100 ml/Dextrose 1,100 ml @ 125 mls/hr Q8H48M IV 10/25/24 17:45 UNV Budesonide (Pulmicort) 0.5 mg BID NEB 10/25/24 22:00 UNV Hydrocortisone Sodium Succinate (Solu-CORTEF INJECTION) 100 mg Q8HR IV 10/25/24 18:00 UNV Vital Signs Vital Signs Date Time Temp Pulse Resp B/P (MAP) Pulse Ox O2 Delivery O2 Flow Rate FiO2 10/25/24 19:15 100.9 146 28 103/58 (73) 67 213.6 10/25/24 18:00 Mechanical Ventilator+ 100 100 Physical Exam Gen.: Patient lying in bed in medical ICU. Sedated, intubated on mechanical ventilator. Head: Normocephalic, atraumatic. Eyes: PERRLA. Ears: Normal external anatomy. Throat: Endotracheal tube and orogastric tube in place. Neck: Supple, trachea midline. Chest: Transmitted breath sounds bilaterally. Decreased air entry bilaterally. No wheezing. Bibasilar crackles. Cardio vascular: Positive S1, positive S2. Regular rate and rhythm. Abdomen: Positive bowel sounds in all 4 quadrants. Soft, nontender, nondistended. : [place] in place. Normal external genitalia. Rectal: Deferred Skin: Warm, dry. Intact. Extremities: 2+ radial pulses bilaterally. No lower extremity edema. Neuro: Sedated. Labs/Diagnostic Data Labs Test 10/25/24 18:24 10/25/24 15:27 10/25/24 11:55 10/25/24 09:49 Range/Units Blood Gas Specimen Type Arterial Blood Gas Sample Site Arterial line Blood Gas Patient Temperature 37.0 Arterial Blood Date Drawn [id number] Arterial Blood pH 7.196 *L 7.350-7.450 Arterial Blood Partial Pressure CO2 47.7 H 32.0-45.0 mmHg Arterial Blood Partial Pressure O2 77.6 L 83.0-108.0 mmHg Arterial Blood HCO3 18.1 L 21.0-28.0 mmol/L Arterial Blood Oxygen Saturation 93.6 L 94.0-98.0 % Arterial Blood Base Excess -9.9 L -2.0-3.0 mmol/L Arterial Blood Oxyhemoglobin 92.5 L 94.0-98.0 % Arterial Blood Carboxyhemoglobin 0.9 0.5-1.5 % Arterial Blood Methemoglobin 0.3 0.0-1.5 % Harjit Test N/a Blood Gas Total Hemoglobin 12.90 12.0-16.0 g/dL Blood Gas Set Respiration Rate 28.0 Blood Gas Modality Vent - ac Blood Gas Spontaneous Rate 28 FiO2 % 100.0 Blood Gas Tidal Volume 500.0 Blood Gas Spontaneous Tidal Volume 525 Blood Gas PEEP or CPAP 8.0 Bl Gas Inspiratory/Expiratory Ratio 1:1.7 Blood Gas Critical Value Read Back Yes Blood Gas Notified Whom Dr. catalina boyle Blood Gas Notified Time [id number] Blood Gas Notified By Zack christianson rcp D-Dimer, Quantitative 7.76 H 0.0-0.49 mg/L FEU Sodium Level 140 136-145 mmol/L Potassium Level 4.3 3.5-5.1 mmol/L Chloride Level 110 H 98-107 mmol/L Carbon Dioxide Level 20 20-31 mmol/L Anion Gap 10 5-15 Blood Urea Nitrogen 18 9-23 mg/dL Creatinine 0.95 0.550-1.02 mg/dL Glomerular Filtration Rate Calc 70 >90 mL/min BUN/Creatinine Ratio 18.9 10.0-20.0 Serum Glucose 132 H 74-106 mg/dL Calcium Level 8.2 L 8.7-10.4 mg/dL Total Bilirubin 0.5 0.2-1.0 mg/dL Aspartate Amino Transferase (AST) 24 13-40 U/L Alanine Aminotransferase (ALT) 16 7-40 U/L Alkaline Phosphatase 81 46-116 U/L Total Protein 5.0 L 5.7-8.2 g/dL Albumin 3.1 L 3.2-4.8 g/dL Lactic Acid Level 2.7 *H 0.4-2.0 mmol/L Magnesium Level 1.5 L 1.6-2.6 mg/dL Troponin I High Sensitivity 3 L </=34 ng/L Test 10/25/24 09:28 10/25/24 09:25 10/25/24 08:02 10/25/24 07:00 Range/Units Blood Gas Liter Flow 60.00 Urine Color Yellow Yellow Urine Clarity Turbid H Clear Urine pH 5.5 5.0-9.0 Urine Specific [place] 1.027 1.001-1.035 Urine Protein 1+ H Negative Urine Ketones Negative Negative Urine Blood 1+ H Negative /uL Urine Nitrite Negative Negative Urine Bilirubin Negative Negative Urine Urobilinogen Normal Negative mg/dL Urine Leukocyte Esterase 1+ Negative /uL Urine RBC 6 0 - 4 /hpf Urine Microscopic WBC 9 H 0-5 /HPF Urine Squamous Epithelial Cells Few <5 /hpf Urine Bacteria Few H None Seen /hpf Urine Hyaline Casts Mod 0 - 2 /lpf Urine Mucus Few None Seen Urine Glucose Normal Normal mg/dL Influenza Type A Antigen Negative Negative Influenza Type B Antigen Negative Negative Blood Gas EPAP 5 Blood Gas IPAP 12 Blood Gas Comments I-time 0.9 sec. White Blood Count 3.6 L 4.4-10.8 10^3/uL Red Blood Count 5.27 H 4.0-5.20 10^6/uL Hemoglobin 14.9 12.2-16.2 g/dL Hematocrit 45.9 36.0-46.0 % Mean Corpuscular Volume 87.0 80.0-100.0 fL Mean Corpuscular Hemoglobin 28.2 28.0-32.0 pg Mean Corpuscular Hemoglobin Concent 32.4 32.0-36.0 g/dL Red Cell Distribution Width 15.0 H 11.8-14.3 % Platelet Count 264 140-450 10^3/uL Mean Platelet Volume 9.6 6.9-10.8 fL Neutrophils (%) (Auto) 37.0-80.0 % Lymphocytes (%) (Auto) 10.0-50.0 % Monocytes (%) (Auto) 0.0-12.0 % Basophils (%) (Auto) 0.0-2.0 % Neutrophils # (Auto) 1.6-8.6 10 ^3/uL Lymphocytes # (Auto) 0.4-5.4 10 ^3/uL Monocytes # (Auto) 0-1.3 10 ^3/uL Differential Total Cells Counted 100.0 100 Neutrophils % (Manual) 62 37.0-80.0 Band Neutrophils % (Manual) 10 Lymphocytes % (Manual) 25 10.0-50.0 Monocytes % (Manual) 3 0-12 Eosinophils % (Manual) 0 0-7 Basophils % (Manual) 0 0.0-2.0 Metamyelocytes % (manual) 0 Myelocytes % (Manual) 0 Promyelocytes % (Manual) 0 Blast Cells % (Manual) 0 Reactive Lymphocytes 0 Platelet Estimate Adequate B-Type Natriuretic Peptide 47.71 0-100 pg/mL Assessment Impression: Acute hypoxic respiratory failure Acute hypercarbic respiratory failure Acute exacerbation of COPD Metabolic acidosis Lactic acidosis Hypomagnesemia Hypokalemia Elevated D-dimer On mechanical ventilator Shock, septic versus cardiogenic Obesity, BMI 30 Methamphetamine abuse Nicotine dependence Plan: s/p intubation on mechanical ventilator Ultrasound venous Doppler bilateral lower extremities: No evidence of DVT. CXR image and report reviewed. ABG reviewed. On assist control with a respiratory rate of 24, tidal volume 500, peep of eight, FiO2 at 100% Increase respiratory rate to 20 breaths per minute. Titrate FIO2 to keep O2 saturation above 92%. VAP bundle Daily ABG and CXR while intubated. Sedate for ventilatory synchrony On pressors for hemodynamic support. On Levophed at 26 micrograms/minute Vasopressin 0.03 Titrate to keep MAP above 65 mmHg/SBP above 90 mmHg. Started stress dose steroids Hydrocortisone 100 mg q.8 hours Continue bronchodilators Start Pulmicort Continue antibiotics. F/u cultures. Monitor renal function due to Acute kidney injury. Monitor electrolytes. Supplement as necessary. Metabolic acidosis, on bicarbonate drip Increase rate to 125 mL Nutritional support. Accucheks, ISS. GI/DVT prophylaxis. Condition: Critical Prognosis: Poor given multiple comorbidities. Rest of plan per hospitalist and other consultants. A total of 36 minutes of critical care time was spent reviewing the patient record, examining the patient, making a diagnostic and therapeutic plan, discussing this plan with the medical personnel, following up on diagnostic studies and following the patient for clinical stability excluding any and all procedures. At least 50% of this time was spent in direct, [id number] conta ct. Thank you DEVANG Reyes for allowing me to participate in this patient's care. Further recommendations will depend on patient's clinical course. Please do not hesitate to contact me if you have any questions or concerns. This medical document was created using an electronic medical record system with [employer] system. Although this document has been carefully reviewed, there may still be some phonetic and typographical errors. These areas are purely typographical due to imperfections of the software programs, and do not reflect any compromise in the patient's medical care. Plan discussed with: Other (DELLA Malhotra, DEVANG) FLORIDALMA BOYLE MD Oct 25, 2024 20:25
[2024-10-25] MEDS: MAGNESIUM SULFATE 1GM/100ML 100 ML IV ONE ×2 (20:30→20:35)
[2024-10-25] MEDS: ACETAMINOPHEN IV 1000 MG/100ML (10MG/ML) IV ONE (21:00)
[2024-10-25] MEDS: ACETAMINOPHEN IV 100 ML IV ONE (21:02)
[2024-10-25] MEDS: ENOXAPARIN SOD 100 MG/1 ML SYRINGE SC SCH (21:33)
[2024-10-25] MEDS: HYDROCORTISONE SOD SUCC 100 MG/2ML INJ VIAL IV SCH (21:33)
[2024-10-25] MEDS: BUDESONIDE (INHALATION) 0.5 MG/2 ML NEB NEB SCH (21:54)
[2024-10-25] MEDS ORDERED: HYDROCORTISONE SOD SUCC 100 MG/2ML INJ VIAL IV ONE (22:00)
[2024-10-25] MEDS ORDERED: methylPREDNISolone SOD SUCC 40 MG/ML VL IV SCH (22:00)
[2024-10-25] MEDS: METOPROLOL TARTRATE 1MG/1ML-5ML VIAL IV ONE (23:04)
--- NOTE | 2024-10-25 23:13 | DVH ---
CHEST RADIOGRAPH Indication: CHANGE CONDITION Technique: Single frontal view of the chest was obtained COMPARISON: Chest AP 10/25/2024 ; 09:04, 07:12 FINDINGS: Lines and Tubes: ETT in satisfactory position Lungs: Extensive bilateral pulmonary infiltrates greater in the right lung, progressed compared to th e prior chest x-rays from earlier the same day. Pleura: No effusion. No pneumothorax. Cardiomediastinal contours: Unremarkable IMPRESSION: Extensive bilateral pulmonary infiltrates greater in the right lung, progressed compared to the prior chest x-rays from earlier the same day.
[2024-10-25 23:18] LABS: Base Excess -20.4 mmol/L (-2.0-3.0)
[2024-10-25 23:18] LABS: Hematocrit 31.5 % (36.0-46.0); Hemoglobin 9.6 g/dL (12.2-16.2); Mean Corpuscular Hgb Conc. 30.5 g/dL (32.0-36.0); Mean Corpuscular Volume 91.8 fL (80.0-100.0); Platelet Count (auto) 90 10^3/uL (140-450); Red Blood Cells 3.43 10^6/uL (4.0-5.20)
[2024-10-25] MEDS: EPINEPHrine HCL 250 ML IV ONE (23:20)
[2024-10-25] MEDS: SODIUM BICARB 50mEq/50ml Vial 150 ML in D5W 5% 1,000 ML IV SCH (23:23)
[2024-10-25] MEDS: EPINEPHrine HCL 250 ML IV SCH (23:25)
[2024-10-25 23:39] LABS: Alkaline Phosphatase 60 U/L (46-116); Anion Gap 16 (5-15); BUN/Creatinine Ratio 15.2 (10.0-20.0); Calcium 9.8 mg/dL (8.7-10.4); Chloride 105 mmol/L (98-107)
[2024-10-25 23:42] LABS: White Blood Cell 1.2 10^3/uL (4.4-10.8)
[2024-10-25 23:43] LABS: Alanine Aminotransferase 513 U/L (7-40); Albumin 1.7 g/dL (3.2-4.8); Aspartate Aminotransferase 789 U/L (13-40); Basophils % (manual) 0 (0.0-2.0); Bilirubin, Total 0.3 mg/dL (0.2-1.0); Blast Cells 0; Blood Urea Nitrogen 27 mg/dL (9-23); Carbon Dioxide 13 mmol/L (20-31); Eosinophils % (manual) 0 (0-7); Glucose 515 mg/dL (74-106); Lactic Acid w/Reflex 10.9 mmol/L (0.4-2.0); Magnesium 2.8 mg/dL (1.6-2.6); Potassium 7.7 mmol/L (3.5-5.1); Promyelocytes % 0; Reactive Lymphocytes 0; Sodium 134 mmol/L (136-145); Total Protein 2.9 g/dL (5.7-8.2)
[2024-10-26] VITALS: BP_SYST 102; BP_SYST 105; BP_DIAS 67; BP_DIAS 73; PULSE 124; RESP 28; TEMP 97.2
[2024-10-26] MEDS: ACCU-CHEK COMFORT CURVE STRIP VI SCH (00:02)
[2024-10-26] MEDS: SODIUM CHLORIDE 0.9% 1,000 ML IV ONE (00:02)
[2024-10-26 00:10] VITALS: BP 67/42; PULSE 142; RESP 28; O2SAT 90
[2024-10-26] MEDS: DEXTROSE (50%) 50ML SYRG IV ONE (00:10)
[2024-10-26] MEDS: InsuLIN REG 1unit/0.01ml Soln (100units/ml) IV ONE (00:10)
[2024-10-26] MEDS: ALBUTEROL SULF 2.5 MG/0.5ML(0.5%) NEB SOLN ONE (00:12)
[2024-10-26] MEDS: CALCIUM GLUC 1,000mg/50ml-NS 0 ML IV ONE (00:12)
[2024-10-26] MEDS: DEXTROSE 50% SYRINGE 50 ML IV ONE (00:12)
[2024-10-26 00:15] VITALS: BP_SYST 77; BP_SYST 78; BP_DIAS 48; BP_DIAS 53; PULSE 123; RESP 28; TEMP 97.2
[2024-10-26] MEDS ORDERED: ALBUTEROL SULF 2.5 MG/0.5ML(0.5%) NEB SOLN NEB ONE ×2 (00:15)
[2024-10-26 00:30] VITALS: BP_SYST 119; BP_SYST 129; BP_DIAS 86; BP_DIAS 89; PULSE 122; RESP 29; TEMP 97
[2024-10-26 00:45] VITALS: BP 48/34; PULSE 100; RESP 28; TEMP 96.4; O2SAT 75
[2024-10-26 00:45] LABS: Base Excess -14.6 mmol/L (-2.0-3.0)
[2024-10-26 01:00] LABS: Band Neutrophils % (manual) 7; Metamyelocytes % 5; Myelocytes % 2
[2024-10-26 01:02] LABS: Monocytes % (manual) 8 (0-12)
[2024-10-26 01:03] LABS: Lymphocytes % (manual) 58 (10.0-50.0)
[2024-10-26 01:04] LABS: Platelet Estimate Decreased
[2024-10-26] MEDS ORDERED: VANCOMYCIN 1.25GM/250ML 250 ML IV SCH (02:00)
--- NOTE | 2024-10-26 03:13 | RESUS ---
CODE BLUE ASSESSSMENT History of Events History of Events: Susan Reid is a 54-year-old female with past medical history of hypertension and CHF, who came in for shortness of breath. On assessment patient was intubated. Per EMS, patient has been experiencing shortness of breath with associated wheezing for 3 days. EMS gave the patient DuoNeb treatment and CPAP with improvement to her symptoms. While in the ER she was tachycardic and her work of breathing continued to increase. Ther ER physician then made the choice to intubate the patient and place a central line. Patient began declining a couple hours after intubation. Was started on multiple vasopressors. D-dimer elevated, will start anticoagulation. Art line was placed. [place] pt was been transferred to icu, she became bradycardic and was given atropine 1mg, on arrival was given bicarb 1 amp and became pulseless. Initial Information Date: Oct 25, 2024 Time: :33 Location of Arrest: ICU ([place]) Arrest Witnessed: Yes CPR started initial time: :33 CPR started by whom: Hospital Staff Pre-Hospital Care: ACLS Type of arrest: Cardiac, Respiratory, Adult, Witnessed Spontaneous Respirations: No Pulse Present: No Monitoring: ECG, Pulse Oximetry, Apnea Crash Cart Opened and Supplies: Yes Airway Ventilation Breathing at Onset: Apneic O2 Sat by Pulse Oximetry: 0 Oxygen Delivery Method: Mechanical Ventilator Artificial Ventilation: Bag/Endo tube Intubation Size: 8.0 cuffed Intubated orally: Yes Intubated Nasaly: No Tube secured at: 20 Confirmation: Auscultation, Exhaled CO2, Chest X-ray Comments: PT PREVIOUSLY INTUBATED Circulation Circulation : Time: 22:33 Pulse Rate (adult): 0 Blood Pressure Systolic: 0 Blood Pressure Diastolic: 0 Temperature (Fahrenheit): 97.5 Medications & Response Medications and Responses #1: Medication Time: 22:33 ADULT Medications Given ADULT: Epinephrine 1 mg, Sodium Bacarbinate 50 meq Route of Administration: IV Heart Rate: 0 EKG Rhythm: PEA Blood Pressure Systolic: 0 Blood Pressure Diastolic: 0 Respiratory Rate: 0 O2 Sat by Pulse Oximetry: 0 EKG Rhythm: Sinus Tachycardia, PEA Comment PULSE CHECK AT 2237 ROSC OBTAINED BS 26 DEXTROSE 1 AMP GIVEN. 2228 PT BECAME BRADYCARDIC ATROPINE 1MG GIVEN, 2329 PT HAS NO PULSE. Medications and Responses #2: Medication Time: 23:29 ADULT Medications Given ADULT: Epinephrine 1 mg, Sodium Bacarbinate 50 meq, Calcium Chloride 10 mL Route of Administration: IV Heart Rate: 0 EKG Rhythm: PEA Blood Pressure Systolic: 0 Blood Pressure Diastolic: 0 Respiratory Rate: 0 O2 Sat by Pulse Oximetry: 0 EKG Rhythm: Sinus Tachycardia Comment PULSE CHECK AT 2332 ROSC HR 123 BP 126 /76. 2344 PT LOST PULSE Medications and Responses #3: Medication Time: 23:44 ADULT Medications Given ADULT: Epinephrine 1 mg, Sodium Bacarbinate 50 meq Route of Administration: IV Heart Rate: 0 EKG Rhythm: PEA Blood Pressure Systolic: 0 Blood Pressure Diastolic: 0 Respiratory Rate: 0 O2 Sat by Pulse Oximetry: 0 EKG Rhythm: Sinus Tachycardia Comment PULSE CHECK AT 2347 ROSC HR 125 BP 122/84. 0024 PT BECAME BRADYCARDIC AND LOST PULSES. Medications and Responses #4: ADULT Medications Given ADULT: Epinephrine 1 mg, Atropine 1 mg, Sodium Bacarbinate 50 meq Route of Administration: IV Heart Rate: 0 EKG Rhythm: Sinus Tachycardia Blood Pressure Systolic: 0 Blood Pressure Diastolic: 0 Respiratory Rate: 0 O2 Sat by Pulse Oximetry: 0 EKG Rhythm: PEA Comment PULSE CHECK 0027 NO PULSE. Medications and Responses #5: Medication Time: 00:27 ADULT Medications Given ADULT: Epinephrine 1 mg, Sodium Bacarbinate 50 meq Route of Administration: IV Heart Rate: 0 EKG Rhythm: PEA Blood Pressure Systolic: 0 Blood Pressure Diastolic: 0 Respiratory Rate: 0 O2 Sat by Pulse Oximetry: 0 EKG Rhythm: Sinus Tachycardia Comment PULSE CHECK PER PROVIDER ROSC HR 124 BP 128 /80. Pacing Pacer Pads Applied and Pacing: Yes Procedure - NG/OG Tube Procedure - NG/OG Tube : NG/OG tube inserted by: PREVIOUSLY PLACED Procedure - Central Venous Cat Central venous catheter site: Rt Femoral Comment: PREVIOUSLY PLACED Procedure - [place] Catheter Comment: PREVIOUSLY PLACED Nurses Notes Jasbir Coma Scale Eye Opening: None (1) [place] Coma Scale Verbal: None (1) Jasbir Coma Scale Motor: None (1) [place] Total: 3 Pupil Reaction: Non Reactive EKG Rhythm: Sinus Tachycardia Time Code Ended Time Code Ended: 00:28 Post Arrest Status: Ventilated Outcome of code: Successful Code Team Present: TYRONE ELECTRIC MOTOR TESTER ASSEMBLER, ESTEVAN RN HS, SORAIDA HULL CHARGE, WILLIAM PAGE CASSIDY RN, ISELA RN, ERIN RT, NEHA RT, SHARYN RT Post Resuscitation Neurologica Pupil Size: 4 Comment: FIXED ROSC Pt Meets Criteria for Therapeu: No Therapeutic Hyperthermia Start: ESTEVAN Carver Oct 26, 2024 03:13
--- NOTE | 2024-10-26 04:04 | CODING ---
Date of Service: Oct 26, 2024 Billing Provider: PALAK HANSEN Common Visit Codes: 55369-[id number] CARE-EACH +30MIN Procedure Codes: [id number] CODE BLUE PALAK HANSEN Oct 26, 2024 04:04
[2024-10-26 13:01] LABS: Phencyclidine Screen, Urine Neg (NEGATIVE)
[2024-10-26 13:04] LABS: Amphetamine Screen, Urine Pos (NEGATIVE); Barbiturate Scree,Urine Neg (NEGATIVE); Benzodiazephine Screen, Urine Neg (NEGATIVE); Cocaine Screen, Urine Neg (NEGATIVE); Opiate Scree,Urine Pos (NEGATIVE)
[2024-10-26 13:23] LABS: Cannabinoid Screen, Urine Pos (NEGATIVE)
--- NOTE | 2024-10-28 11:19 | ECG ---
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
--- NOTE | 2024-10-28 14:37 | ECG ---
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
== END 2024-10-26 00:59 | DRG 720 ==
LOC: ER 06:48 → EDBD 06:48 → TELE 09:57 → EDUNIT# 09:57 → OVERFLOW 16:25 → ICU WEST 22:25
PROVIDERS: ADMIT Nurse Practitioner Family; ATTEND Nurse Practitioner Family
PROC: 5A1935Z Respiratory Ventilation, Less than 24 Consecutive Hours (ICD-10-PCS; principal; 2024-10-25)
PROC: 0BH17EZ Insertion of Endotracheal Airway into Trachea, Via Natural or Artificial Opening (ICD-10-PCS; 2024-10-25)
PROC: 5A09357 Assistance with Respiratory Ventilation, Less than 24 Consecutive Hours, Continuous Positive Airway Pressure (ICD-10-PCS; 2024-10-25)
PROC: 5A12012 Performance of Cardiac Output, Single, Manual (ICD-10-PCS; 2024-10-25)
PROC: 06HY33Z Insertion of Infusion Device into Lower Vein, Percutaneous Approach (ICD-10-PCS; 2024-10-25)
DX: A41.9 Sepsis, unspecified organism (principal); J96.01 Acute respiratory failure with hypoxia; J18.9 Pneumonia, unspecified organism; E87.29 Other acidosis; R65.21 Severe sepsis with septic shock; R57.0 Cardiogenic shock; J44.0 Chronic obstructive pulmonary disease with (acute) lower respiratory infection; I11.0 Hypertensive heart disease with heart failure; I50.9 Heart failure, unspecified; J44.1 Chronic obstructive pulmonary disease with (acute) exacerbation; E66.9 Obesity, unspecified; E83.42 Hypomagnesemia; E87.6 Hypokalemia; F15.10 Other stimulant abuse, uncomplicated; F17.210 Nicotine dependence, cigarettes, uncomplicated; J96.02 Acute respiratory failure with hypercapnia; N39.0 Urinary tract infection, site not specified; Z68.30 Body mass index [BMI] 30.0-30.9, adult; Z88.0 Allergy status to penicillin; Z88.8 Allergy status to other drugs, medicaments and biological substances
CPT/HCPCS: 31500; 36415; 36556; 36600; 71045; 80048; 80053; 80307; 81001; 82140; 82805; 82962; 83605; 83735; 83880; 84484; 85007; 85027; 85379; 87040; 87070; 87077; 87081; 87086; 87186; 87205; 87804; 93005; 93970; 94002; 94640; 94660; 99291; G0378; J0131; J0171; J0692